=== PATIENT | male | born 1990 | race African-American/Black ===

== ENCOUNTER 2024-08-28 14:15 | Emergency (ER) | payer OTHER ==
[~2024-08-28] VITALS: Ht 195.6 cm; Wt 108.9 kg
[2024-08-28 15:21] VITALS: BP 117/72; TEMP 98.1
[2024-08-28 17:59] LABS: APPEARANCE,URINE CLEAR (CLEAR); BILIRUBIN,URINE NEGATIVE (NEGATIVE); BLOOD, URINE NEGATIVE Ery/uL (NEGATIVE); COLOR,URINE YELLOW (YELLOW); KETONES,URINE NEGATIVE (NEGATIVE); LEUKOCYTE ESTERASE ,URINE NEGATIVE (NEGATIVE); NITRITE, URINE NEGATIVE (NEGATIVE); PROTEIN,URINE NEGATIVE (NEGATIVE); UGLUCOSE NEGATIVE (NEGATIVE); UROBILINOGEN,URINE 0.2 EU/dL (0.2)
[2024-08-28] MEDS ORDERED: ALBU6.7H9 INH (18:11)
[2024-08-28] MEDS ORDERED: LORA10TA7 PO (18:11)
[2024-08-28 18:17] VITALS: O2SAT 98
== END 2024-08-28 18:17 | disposition home or self-care (01) ==
LOC: ER 14:29
DX: M25.511 Pain in right shoulder (principal); F12.90 Cannabis use, unspecified, uncomplicated; F17.200 Nicotine dependence, unspecified, uncomplicated; J45.909 Unspecified asthma, uncomplicated; Z76.0 Encounter for issue of repeat prescription
CPT/HCPCS: 73030-TC

== ENCOUNTER 2024-12-16 12:29 | Emergency (ER) | payer OTHER ==
[~2024-12-16] VITALS: Ht 193 cm; Wt 117.9 kg
[~2024-12-16 12:29] MED LIST: ALBU6.7H9 INH; LORA10TA7 PO
[2024-12-16] MEDS ORDERED: NAPR-1164 PO (13:07)
[2024-12-16] MEDS ORDERED: KETOROLAC TROMETHAMINE 15 MG/ML VIAL ONE (13:46)
[2024-12-16] MEDS: KETOROLAC TROMETHAMINE 15 MG/ML VIAL IM ONE (13:46)
[2024-12-16 13:49] VITALS: BP 138/94; TEMP 98.6; O2SAT 94
== END 2024-12-16 13:50 | disposition home or self-care (01) ==
LOC: ER 12:31
DX: M25.561 Pain in right knee (principal); F12.90 Cannabis use, unspecified, uncomplicated; F17.200 Nicotine dependence, unspecified, uncomplicated; J45.909 Unspecified asthma, uncomplicated; Z79.899 Other long term (current) drug therapy
CPT/HCPCS: 99283; 96372; 73564; J1885